=== PATIENT | male | born 1970 | race Caucasian/White ===

== ENCOUNTER 2021-04-07 15:59 | Emergency (ER) | payer OTHER, SELFPAY ==
[2021-04-07 16:08] VITALS: BP 153/89; PULSE 89; RESP 16; TEMP 36.4; O2SAT 99
--- NOTE | 2021-04-07 16:49 | ED.WOUNDLAC ---
HPI - Wound/Laceration General Chief Complaint: Wound/Laceration Stated Complaint: INJURED NOSE Source: patient Mode of arrival: ambulatory Limitations: no limitations History of Present Illness HPI narrative: Patient is a 50-year-old male who presents complaining of a laceration to the nose. He reports he was carrying a street sign which fell and hit him in the nose, patient believes nose was cut by glasses. He denies loss of consciousness, denies all other injuries. Patient is unaware if tetanus is up-to-date. Patient denies taking [id number] medications prior to arrival. Related Data Home Medications Medication Instructions Recorded Confirmed buspirone [BuSpar] 5 mg PO TID 04/07/21 04/07/21 fluoxetine 10 mg PO DAILY 04/07/21 04/07/21 montelukast [Singulair] 10 mg PO DAILY 04/07/21 04/07/21 simvastatin 5 mg PO DAILY 04/07/21 04/07/21 Allergies Allergy/AdvReac Type Severity Reaction Status Date / Time No Known Allergies Allergy Verified 04/07/21 16:21 Review of Systems Review of Systems: CONSTITUTIONAL: Denies fever, chills, or sweats. EYES: Denies visual changes, redness, or discharge. ENT: Denies rhinorrhea, congestion, sore throat, or otalgia. CARDIOVASCULAR: Denies chest pain, palpitations, or edema. RESPIRATORY: Denies cough or dyspnea. GASTROINTESTINAL: Denies abdominal pain, nausea, vomiting, or diarrhea. GENITOURINARY: Denies dysuria or hematuria. SKIN: Laceration to nose MUSCULOSKELETAL: Denies back pain, joint pain, or myalgia. NEUROLOGIC: Denies headache, numbness, dizziness, or weakness. PSYCHIATRIC: Denies anxiety or depression. [facility] Past Medical History Medical History (Updated 04/07/21 @ 16:55 by DELIA Rocha) No significant past medical history Surgical History Surgical History (Updated 04/07/21 @ 16:51 by DELIA Rocha) No significant past surgical history Social History Social History (Updated 04/07/21 @ 16:51 by DELIA Rocha) Smoking status: Never smoker Alcohol intake: current Alcohol use details: Occasional Substance use: never Living arrangements: with family Occupation/Education: occupation Gender identity (if verbalized by the patient): Male Comments At the time of signature, I have reviewed and agree with nursing past medical, surgical, social, and family history unless otherwise noted. Please see nursing chart for further information. There is no relevant family history pertinent to the presenting complaint. Exam Narrative: GENERAL: Well-appearing, well-nourished, and in no acute distress. HEAD: Normocephalic, atraumatic. EYES: EOMI. No redness or drainage. Conjunctiva are normal. ENT: Mucous membranes pink and moist. CHEST: No respiratory distress. HEART: Regular rate and rhythm. EXTREMITIES: Normal range of motion. SKIN: Approximately 2 cm laceration to nose, bleeding controlled NEURO: No focal deficits. Alert and oriented x3. Gait steady. PSYCH: Normal affect. No signs of depression or anxiety. Course Vital Signs Vital signs: Vital Signs Temperature 36.4 C L 04/07/21 16:08 Pulse Rate 89 04/07/21 16:08 Respiratory Rate 16 04/07/21 16:08 Blood Pressure 153/89 H 04/07/21 16:08 Pulse Oximetry 99 04/07/21 16:08 Temperature 36.4 C L 04/07/21 16:08 Pulse Rate 89 04/07/21 16:08 Respiratory Rate 16 04/07/21 16:08 Blood Pressure 153/89 H 04/07/21 16:08 Pulse Oximetry 99 04/07/21 16:08 Reviewed. Patient has been instructed to follow-up with his PCP regarding his blood pressure. Procedures Laceration Laceration 1: Site: face Size (cm): 2 Description: linear Local Anesthetic: lidocaine 1% Amount of anesthesia used (mL): 1 Pre-repair: irrigated ====== Skin Level ====== Size (cm): other (7-0) Number of sutures: 6 Technique: simple, interrupted ====== Subcutaneous Layer ====== ====== Muscle Layer ==
== END 2021-04-07 17:12 | disposition home or self-care (01) ==
PROVIDERS: Emergency Provider Nurse Practitioner; PCP Nurse Practitioner Family
DX: S01.21XA Laceration without foreign body of nose, initial encounter (principal); W20.8XXA Other cause of strike by thrown, projected or falling object, initial encounter; E78.00 Pure hypercholesterolemia, unspecified; J45.909 Unspecified asthma, uncomplicated; K21.9 Gastro-esophageal reflux disease without esophagitis; F41.9 Anxiety disorder, unspecified; F32.9 Major depressive disorder, single episode, unspecified
CPT/HCPCS: 12011; 99212; G0463

== ENCOUNTER → 2022-05-18 08:27 | Outpatient (CLI) | payer OTHER, SELFPAY ==
--- NOTE | ~2022-05-18 | CT_ITS ---
EXAMINATION: CT sinus wo con DATE: 05/18/2022 08:45 INDICATION: Chronic cough TECHNIQUE: Computed tomography (CT) of the paranasal sinuses was performed without intravenous contra st. The dose-length product was 279.12 mGy-cm. Automated exposure control and iterative reconstructio n technique were employed. COMPARISON: None FINDINGS: There is significant mucosal thickening, air-fluid level or mucoperiosteal reaction. There is leftward nasal septal deviation. Ostiomeatal units are patent. Mastoid air cells are pneumatized. IMPRESSION: 1. No significant abnormality of the sinuses. Reviewed, dictated and finalized at location A.
== END ==
PROVIDERS: PCP Nurse Practitioner Family; Visit Provider Otolaryngology
DX: R05.9 Cough, unspecified (principal)
CPT/HCPCS: 70486